=== PATIENT | female | born 1945 | race Caucasian/White ===

== ENCOUNTER 2022-10-31 06:10 | Day surgery (SDC) | payer MEDICARE, BC, SELFPAY ==
--- NOTE | 2022-10-31 06:27 | SUR.PREOP ---
Patient provided home covid negative results to RN.
--- NOTE | 2022-10-31 06:27 | SUR.PREOP ---
The eye drops brought by the patient (Ketorolac and Prednisolone) are examined and I have determined they are labeled by the patient's pharmacy for this patient as prescribed by the surgeon. The bottles are intact, recently obtained and appear to be correct.
[2022-10-31] MEDS: TETRACAINE 0.5% OPHTH 1 DROP EYE-RIGHT ×2 (06:34→06:47)
[2022-10-31 06:36] VITALS: BMI 25.7
[2022-10-31] MEDS: SODIUM CHLORIDE 0.9 % (FLUSH) 10 ML SYRINGE IVF (06:40)
[2022-10-31] MEDS: KETOROLAC OPHTH 0.5% 1 DROP EYE-RIGHT ×3 (06:46→06:57)
[2022-10-31 07:00] VITALS: BP 152/77; PULSE 73; RESP 16; TEMP 36.8; O2SAT 96
[2022-10-31] MEDS: TETRACAINE 0.5% OPHTH 2 DROP EYE-RIGHT (07:17)
[2022-10-31] MEDS: BALANCED SALT IRRIG SOLN 15 ML EYE-RIGHT (07:22)
--- NOTE | 2022-10-31 07:27 | P.ANES_ITS ---
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
[2022-10-31 07:41] VITALS: BP 149/91; PULSE 50; RESP 14; TEMP 36.9; O2SAT 94
[2022-10-31 08:00] VITALS: BP 128/74; PULSE 49; RESP 16; O2SAT 93
--- NOTE | 2022-10-31 08:35 | W.PM.OPTPROC ---
Procedure Note Date of procedure: 10/31/22 Will [facility] bill your pro fee for this procedure?: Yes Procedure Description: SURGEON: Hailee Sharma MD PREOPERATIVE DIAGNOSIS: Nuclear sclerotic cataract, right eye. POSTOPERATIVE DIAGNOSIS: Nuclear sclerotic cataract, right eye. NAME OF OPERATION: Phacoemulsification of cataract with posterior chamber intraocular lens implantation in the right eye. ANESTHESIA: Topical. ESTIMATED BLOOD LOSS: Less than 2 cc. COMPLICATIONS: None. PATHOLOGY SPECIMEN: None. INDICATIONS: See consult note for details. The risks, benefits and alternatives of the procedure were explained to the patient, who elected to proceed and signed informed consent to do so. PROCEDURE: The patient was brought to the pre-holding area where the right eye was identified as the operative eye. I placed my initials above this eye. The patient received eye drops consisting of 0.5% tetracaine, 1% tropicamide, 10% phenylephrine, and 0.5% ketorolac. The patient was then brought to the operating room where the right eye was again identified as the operative eye. The eye was prepped with Betadine and draped in the usual sterile ophthalmic fashion. A #15 super-sharp blade was used to create a paracentesis site. 1% non-preserved intracameral lidocaine was injected into the anterior chamber. Endocoat was injected into the anterior chamber. A 2.4 mm keratome was used to create a three-plane self-sealing incision 1 mm anterior to the temporal limbus. A cystotome was used to create an anterior capsular leaflet. The Utrata forceps were used to extend this to form a continuous curvilinear capsulorrhexis. Hydrodissection was performed. The cataract was removed with phacoemulsification using the [id number] technique. The irrigation and aspiration tip was used to remove the remaining cortex. Healon was injected into the capsular bag. An MAGED ZCB00 intraocular lens of 20.5 diopters was injected into the capsular bag. The irrigation and aspiration tip was used to remove the remaining viscoelastic. Balanced salt solution on a cannula was used to hydrate the wound, and the wound was found to be watertight. The pupil was noted to be round. DISPOSITION: The patient was taken to the recovery room and discharged to home in stable condition. The patient was instructed to call me or go to the emergency department with any sudden change, including dramatic loss of vision, severe pain in the eye or eyebrow region, nausea, or vomiting. The patient will follow up in the clinic tomorrow morning. Surgeon: Hailee Sharma MD
== END 2022-10-31 08:15 | disposition home or self-care (01) ==
PROVIDERS: PCP Family Medicine; Visit Provider Ophthalmology
PROC: (CPT 66984; principal; 2022-10-31 06:15)
DX: H25.11 Age-related nuclear cataract, right eye (principal)
CPT/HCPCS: 66984; 00142; 99100; A9270; J2250; J3010; V2632

== ENCOUNTER 2022-11-14 06:14 | Day surgery (SDC) | payer MEDICARE, BC, SELFPAY ==
[2022-11-14 06:33] VITALS: BMI 25.7
[2022-11-14] MEDS: TETRACAINE 0.5% OPHTH 1 DROP EYE-LEFT ×2 (06:33→06:41)
[2022-11-14 06:37] VITALS: BP 139/90; PULSE 72; RESP 16; TEMP 36.2; O2SAT 94
[2022-11-14] MEDS: KETOROLAC OPHTH 0.5% 1 DROP EYE-LEFT ×3 (06:39→06:55)
[2022-11-14] MEDS: SODIUM CHLORIDE 0.9 % (FLUSH) 10 ML SYRINGE IVF (06:55)
[2022-11-14] MEDS: TETRACAINE 0.5% OPHTH 2 DROP EYE-LEFT (07:21)
[2022-11-14] MEDS: BALANCED SALT IRRIG SOLN 15 ML EYE-LEFT (07:27)
--- NOTE | 2022-11-14 07:35 | SUR.PREOP ---
Patient provided home covid negative results to RN.
[2022-11-14 07:50] VITALS: BP 138/76; PULSE 49; RESP 16; TEMP 36.2; O2SAT 95
--- NOTE | 2022-11-14 07:53 | P.ANES_ITS ---
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
--- NOTE | 2022-11-14 08:02 | W.ANESCHARGE ---
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
--- NOTE | 2022-11-14 08:44 | P.OPTPRC_ITS ---
Procedure Note Date of procedure: 11/14/22 Will [facility] bill your pro fee for this procedure?: Yes Procedure Description: SURGEON: Hailee Sharma MD PREOPERATIVE DIAGNOSIS: Nuclear sclerotic cataract, left eye. POSTOPERATIVE DIAGNOSIS: Nuclear sclerotic cataract, left eye. NAME OF OPERATION: Phacoemulsification of cataract with posterior chamber intraocular lens implantation in the left eye. ANESTHESIA: Topical. ESTIMATED BLOOD LOSS: Less than 2 cc. COMPLICATIONS: None. PATHOLOGY SPECIMEN: None. INDICATIONS: See consult note for details. The risks, benefits and alternatives of the procedure were explained to the patient, who elected to proceed and sign ed informed consent to do so. PROCEDURE: The patient was brought to the pre-holding area where the left eye was identified as the operative eye. I placed my initials above this eye. The patient received eye drops consisting of 0.5% tetracaine, 1% tropicamide, 10% phenylephrine, and 0.5% ketorolac. The patient was then brought to the operating room where the left eye was again identified as the operative eye. The eye was prepped with Betadine and draped in the usual sterile ophthalmic fashion. A #15 super-sharp blade was used to create a paracentesis site. 1% non-preserved intracameral lidocaine was injected into the anterior chamber. Endocoat was injected into the anterior chamber. A 2.4 mm keratome was used to create a three-plane self-sealing incision 1 mm anterior to the temporal limbus. A cystotome was used to create an anterior capsular leaflet. The Utrata forceps were used to extend this to form a continuous curvilinear capsulorrhexis. Hydrodissection was performed. The cataract was removed with phacoemulsification using the [id number] technique. The irrigation and aspiration tip was used to remove the remaining cortex. Healon was injected into the capsular bag. An MAGED ZCB00 intraocular lens of 20.0 diopters was injected into the capsular bag. The irrigation and aspiration tip was used to remove the remaining viscoelastic. Balanced salt solution on a cannula was used to hydrate the wound, and the wound was found to be watertight. The pupil was noted to be round. DISPOSITION: The patient was taken to the recovery room and discharged to home in stable condition. The patient was instructed to call me or go to the emergency department with any sudden change, including dramatic loss of vision, severe pain in the eye or eyebrow region, nausea, or vomiting. The patient will follow up in the clinic tomorrow morning. Surgeon: Hailee Sharma MD
== END 2022-11-14 08:20 | disposition home or self-care (01) ==
PROVIDERS: PCP Family Medicine; Visit Provider Ophthalmology
PROC: (CPT 66984; principal; 2022-11-14 06:15)
DX: H25.12 Age-related nuclear cataract, left eye (principal)
CPT/HCPCS: 66984; 00142; 99100; A9270; J2250; J3010; V2632

== ENCOUNTER 2024-10-31 15:47 | Emergency (ER) | payer MEDICARE, BC, SELFPAY ==
--- OUTSIDE RECORDS SUMMARY | 2024-10-31 15:49 | XMS_ITS | Clinical Summary ---
Author Organization [facility] Address [place], [place] [address] Care Team Providers Care Driveway Attendant Name Role Phone Agapito Stovall MD Unavailable [phone] Gayle Davidson DO Primary Care Provider [phone] Anish Weeks MD Unavailable [phone] Allergies Active Allergy Reactions Criticality Noted Date Comments Meperidine Hypotension,Seizures 02/02/2013 Hydromorphone Hypotension 03/17/2012 Severe hypotensive reaction post op Lactose GI Upset 06/14/2016 Medications ZYRTEC 10 MG TABIndications:A llergic rhinitis, cause unspecified take 1 tablet (10 mg) by oral route once daily 90 3 9 Active NEBULIZERS KITIndications:U nspecified asthma(493.90) use QID as needed 1 0 9 Active zinc 50 mg tablet Take 50 mg by mouth once daily. 3 times weekly 0 2 Active omega-3 fatty acids-vitamin E (FISH OIL) 1,000 mg cap Take 1 capsule by mouth once daily. 0 5 Active aspirin chewable 81 mg chewable tabletIndication s:Coronary artery disease, angina presence unspecified, unspecified vessel or lesion type, unspecified whether [place] or transplanted heart Take 1 tablet by mouth once daily with a meal. 30 tablet 11 6 Active vit C 150mg-vit E 30unit-lutein 3pb-evsrrfdb-ogb ga 3 250mg (OCUVITE ADULT 50 PLUS) Take 1 capsule by mouth once daily. 0 9 Active nitroglycerin (NITROSTAT) 0.4 mg sublingual tabletIndication s:Coronary artery disease, angina presence unspecified, unspecified vessel or lesion type, unspecified whether [place] or transplanted heart Place 1 tablet under the tongue every 5 minutes if needed for Chest Pain (first choice for chest pain). 25 tablet 4 1 Active cholecalciferol (VITAMIN D3) 2,000 unit capsule Take 2,000 units by mouth once daily. 0 1 Active Cranberry 500 mg cap Take 1 Capsule (500 mg) by mouth 2 times daily. 0 1 Active Glucosamine-Sandip d-MSM-Vit C-Mn tablet Take 2 Tablets by mouth once daily. 0 1 Active albuterol (PROVENTIL) 0.083 % neb solutionIndicati ons:Allergic rhinitis, unspecified seasonality, unspecified trigger Inhale 3 mL (2.5 mg) via a nebulizer every 4 hours if needed for Cough 1st choice, Shortness of Breath 1st choice or Wheezing 1st choice. One ampule in nebulizer as needed 25 mL 1 1 Active fluticasone (50 mcg per actuation) nasal solution (FLONASE)Indicat ions:Allergic rhinitis, unspecified seasonality, unspecified trigger Inhale 2 Sprays to both nostrils once daily if needed for Rhinitis. 48 g 3 2 Active albuterol HFA (PRO-AIR; VENTOLIN; PROVENTIL) 90 mcg/actuation inhalerIndicatio ns:Moderate persistent intrinsic asthma without status asthmaticus without complication Inhale 2 Puffs by mouth every 4 hours if needed for Shortness Of Breath. 17 g 2 3 Active benzonatate (TESSALON) 100 mg capsule Take 100 mg by mouth 3 times daily if needed for Cough. asthma Active calcium carbonate-vitami n D3 600 mg-20 mcg (800 unit) tab Take by mouth. Active fluocinonide 0.05% topical (LIDEX) 0.05 % gel Apply topically to affected area(s) one time if needed. 3 Active montelukast (Singulair) 10 mg tabletIndication s:Moderate persistent intrinsic asthma without status asthmaticus without complication Take 1 Tablet (10 mg) by mouth at bedtime. 90 Tablet 3 4 Active fluticasone furoate-vilanter oL (Breo Ellipta) 200-25 mcg/dose inhalation powdererIndicati ons:Moderate persistent intrinsic asthma without status asthmaticus without complication Inhale 1 Puff by mouth once daily. 3 Each 5 Active amLODIPine (NORVASC) 2.5 mg tabletIndication s:HTN (hypertension),U nstable angina (HC) Take 1 Tablet (2.5 mg) by mouth once daily. 90 Tablet 3 5 Active rosuvastatin (CRESTOR) 20 mg tabletIndication s:Coronary artery disease, unspecified vessel or lesion type, unspecified whether angina present, unspecified whether [place] or transplanted heart Take 1 Tablet (20 mg) by mouth at bedtime. 90 Tablet 3 5 Active omeprazole (PRILOSEC) 20 mg Delayed-Release capsuleIndicatio ns:Gastric reflux Take 1 Capsule (20 mg) by mouth once daily before a meal. 90 Capsule 5 Active amLODIPine (NORVASC) 2.5 mg tabletIndication s:HTN (hypertension),U nstable angina (HC) Take 1 Tablet (2.5 mg) by mouth once daily. 90 Tablet 3 4 025 Discontinu ed(Reorder (E-cancel not sent)) rosuvastatin (CRESTOR) 20 mg tabletIndication s:Coronary artery disease, unspecified vessel or lesion type, unspecified whether angina present, unspecified whether [place] or transplanted heart Take 1 Tablet (20 mg) by mouth at bedtime. 90 Tablet 3 4 025 Discontinu ed(Reorder (E-cancel not sent)) omeprazole (PRILOSEC) 20 mg Delayed-Release capsuleIndicatio ns:Gastric reflux TAKE 1 CAPSULE(20 MG) BY MOUTH EVERY DAY BEFORE A MEAL 90 Capsule 4 025 Discontinu ed(Reorder (E-cancel not sent)) montelukast (SINGULAIR) 10 mg tabletIndication s:Moderate persistent intrinsic asthma without status asthmaticus without complication Take 1 Tablet (10 mg) by mouth at bedtime. 90 Tablet 4 025 Discontinu ed(Duplica te therapy (E-cancel not sent)) Active Problems Problem Noted Date Diagnosed Date History of CAD (coronary artery disease) 024 Atypical chest pain 12/31/2023 Primary hypertension 12/31/2023 Mixed hyperlipidemia 12/31/2023 Colon polyp 07/05/2023 Overview (07/05/2023): Colonoscopy 06/2023 2-TA, repeat in 7 years Endometrial carcinoma 09/04/2017 Overview (09/04/2017): [place] 2017: hysterectomy due to. Final pathology endometrial carcinoma, endometrioid type, FIGO grade 1. See pathology report. Bilateral asymmetric sensorineural hearing loss 10/16/2016 Vertigo 06/13/2016 ECG abnormality 06/13/2016 Diaphoresis 06/13/2016 Tinnitus 06/13/2016 GERD (gastroesophageal reflux disease) 6 CAD (coronary artery disease) 06/13/2016 Overview (06/13/2016): - 06/13/16 Angio: s/p SAI to mid LAD and PTCA to diagonal Allergic cough 01/20/2014 Adenomatous colon polyp 02/18/2013 Overview (04/11/2018): Colonoscopy 01/2013 polyp repeat in 5 years Colonoscopy 03/2018 polyp, repeat in 5 years Routine general medical exam ination at a health care facility 03/17/2012 Overview (03/17/2012): dexa normal 2008. Repeat in 5 years or so. Fe Moreira M.D. 03/17/2012 3:39 PM ACP (advance care planning) 01/03/2012 Overview (04/19/2016): Updated HCD, see HCD from 02/2016 STACY Waterman Advance Care Planning Educator [phone] Hip osteoarthritis 05/09/2011 Postmenopausal atrophic vaginitis 11/08/2009 Allergic rhinitis, cause unspecified Unspecified asthma(493.90) Resolved Problems Problem Noted Date Diagnosed Date Resolved Date Hip pain 11/08/2009 02/11/2012 Encounters Date Type Department Care Team Description 10/15/2024 8:20 AM STEEL POURER HELPER Office Visit [facility] [address] [place] [facility] [place] [address] Gayle Davidson DO Medicare ANNUAL (subsequent) Visit (79 year old ) 10/15/2024 Travel 10/13/2024 Travel 09/30/2024 1:40 PM STEEL POURER HELPER Ancillary Procedure [facility] [address] [place] [address] 09/30/2024 Refill [facility] [place] [address] Agapito Stovall MD Refill Request (FLUTIC/VILAN) 09/29/2024 Travel 08/27/2024 7:55 AM STEEL POURER HELPER Office [facility] [place] [address] Gayle Davidson DO Breast Problem (left sided on and off for 11 months. more consistent lately) 08/27/2024 Orders Only [facility] [place] [address] Gayle Davidson DO 1 scan: (1-Ord) NFLD-EKG-08/27/24 08/26/2024 Travel 08/26/2024 Nurse Triage [facility] [address] [place] [address] Lashawn Macias, RAYNA Pain In Breast; Chest Pain/problem 08/17/2024 10:40 AM STEEL POURER HELPER Office Visit [facility] [place] [address] Agapito Stovall MD Allergies (ANNUAL ASTHMA FOLLOW UP-MED CHECK) 08/17/2024 Orders Only [facility] Scanner 1 scan: (1-Ord) UNKNOWN FACILITY, [facility], 08/17/2024 08/17/2024 Travel 08/12/2024 Travel 08/06/2024 Refill [facility] [address] [place] [address] Gayle Davidson DO Refill Request (Omeprazole/Montelu kast ) from Last 3 Months Immunizations Name Administration Dates Next Due AMB INFLUENZA IIV3 (AGE 65+ YRS) PF (Flu Clinic Only) 07/11/2019,07/02/2017 Amb Influenza, Inact (High-d ose) (Flu Clinic Only) 08/12/2015,07/07/2014 COVID-19 VACCINE SPIKEVAX (M ODERNA 50MCG/0.5ML) 12YO+ PFS 12/26/2023 COVID-19 vaccine (Moderna 50 mcg/0.5mL) 12YO+ BIVALENT PF, MDV 01/15/2023 COVID-19 vaccine (for[MD]-Bio NTech 30mcg/0.3mL) 12YO+ BIVALENT PF, MDV 06/09/2022 COVID-19 vaccine (Pfizer-Bio NTech 30mcg/0.3mL) PF, MDV 11/26/2020,11/05/2020 Influenza A (H1N1), Inactivated 08/04/2009 Influenza Virus, Unspecified 07/05/2017 Influenza, High-dose Inactivated 024,06/07/2020,07/11/2016,08/12,07/07/2014 Influenza, High-dose Quadriv alent Inactivated 06/29/2021,05/06/2020 Influenza, IIV3 (Age 6-35 mos) 05/31/2011 Influenza, IIV3 (Age >=3 years) 07/29/20 13,06/26/2012,05/31/2011,06/26,07/05/2004 Influenza, Inactivated AIIV4 (Age 65+ Years) Preserv Free 08/04/2023,07/16/2022 Influenza, Inactivated IIV3 (Age 65+ Years) Preserv Free 06/26/2018 Pneumococcal Conj 20-valent (Prevnar 20) 06/24/2024 Pneumococcal Poly,23-Valent (Pneumovax) 01/06/2014 Pneumococcal conj 13-Valent (Prevnar 13) 10/13/2015 RSV, Bivalent Vaccine Recons tituted (Abrysvo 120MCG/0.5mL) 08/04/2023 Td (Age >=7 Years) 01/18/2003 Tdap 09/12/2021,02/05/2011 Zoster (Shingrix-RZV, recombinant) 01/15/2019, Zoster (Zostavax-ZVL, live) 02/05/2011 Family History Medical History Relation Name Comments Heart Disease Father decreased at 7 8 from a heart attack Cancer-breast Mother 80's Other Mother macular degener ation Cancer-breast Other x4 cousins Cancer-breast Paternal Grandmother Cancer-colon No Family History Cancer-ovarian No Family History Relation Name Status Comments Father (Age 78) heart winnie ck Mother Alive Other Paternal Grandmother Social History Tobacco Use Types Packs/Day Years Used Date Smoking Tobacco: Never Smokeless Tobacco: Never Tobacco Cessation:Counseling Given: Yes Alcohol Use Standard Drinks/Week Comments Not Currently 0 (1 standard drink = 0.6 oz pur e alcohol) PHQ-2 Answer Date Recorded PHQ-2 TOTAL SCORE 2 10/15/2024 Social Connections Answer Date Recorded Do you often feel lonely or isolated from those around you? 0 10/15/2024 Alcohol Use Answer Date Recorded How often do you have a drink containing alcohol ? 1 09/11/2021 How many drinks containing a lcohol do you have on a typical day when you are drinking? 0 09/11/2021 How often do you have five or more drinks on one occasion? 0 09/11/2021 Financial Resource Strain Answer Date R ecorded Difficulty of Paying Living Expenses 3 10/15/2024 Difficulty of Paying Living Expenses Not on file 10/15/2024 Food Insecurity Answer Date Recorded Do you worry your food will run out before you are able to buy more? 1 10/15/2024 Transportation Needs Answer Date Record ed Does lack of transportation keep you from medica l appointments? 1 10/15/2024 Does lack of transportation keep you from work, meetings or getting things that you need? 1 10/15/2024 Housing Stability Answer Date Recorded What is your housing situation today? 1 10/15/2024 Utilities Answer Date Recorded Do you have trouble paying f or utilities (for example, heat, electricity, water, phone)? 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 on file Not on file Not on file Obstetrics History Para Term AB IAB SAB Ectopic Multiple Livin g Live Births 4 2 0 0 2 0 2 0 0 2 2 Date Outcome GA Total Labor Labor/2nd/3rd Weight Sex Type Anes PTL Christa A1 A5 Name Clin Para Vag Living Para Vag Living SAB SAB Last Filed Vital Signs Vital Sign Reading Time Taken Comments Blood Pressure 118/74 10/15/2024 8:39 AM STEEL POURER HELPER Pulse 75 10/15/2024 8:25 AM STEEL POURER HELPER Temperature 36.4 C (97.6 F) 08/17/2024 10:50 AM STEEL POURER HELPER Respiratory Rate 16 07/03/2023 11:12 AM CDT Oxygen Saturation 98% 10/15/2024 8:25 AM STEEL POURER HELPER Inhaled Oxygen Concentration - - Weight 67.7 kg (149 lb 3.2 oz) 10/15/2024 8:25 A M STEEL POURER HELPER Height 163.5 cm (5' 4.37) 10/15/2024 8:25 AM CS T Body Mass Index 25.32 10/15/2024 8:25 AM STEEL POURER HELPER Plan of Treatment Upcoming Encounters Date Type Department Care Team (Late st Contact Info) Description 12/25/2024 1:00 PM CDT Ancillary Procedure [facility] [address] [place] [address] Health Maintenance Due Date Last Done Comments BMI (ht and wt on same day) for age 18+ 10/15/2025 10/15/2024, 08/17/2024, 10/10/2023, Additional history exists Depression screening for age 12+ 10/15/2025 10/15/2024, 10/10/2023, 09/12/2022, Additional history exists Medicare Wellness for age 65+ 10/16/2025, 10/10/2023, 09/12/2022, Additional history exists Tetanus booster 09/12/2031 09/12/2021, 01/21, 01/18/2003 Zoster (shingles) series for age 50+ Completed 01/15/2019, 11/14/2018, 02/05/2011 Hepatitis C screening for ag e 18-79 Completed 09/02/2019 DEXA/DXA scan for age 65+ Completed 2020, 10/14/2015, 10/21/2008 Tdap Completed 09/12/2021, 02/05/2011 RSV vaccine for adults or Completed 08/04/2023 COVID-19 vaccine series Completed 06/24/20, 12/26/2023, 06/26/2023, Additional history exists Influenza for age 65+ Completed 06/24/2024 , 08/04/2023, 07/16/2022, Additional history exists Pneumococcal series for age 50+ Completed 06/24/2024, 10/13/2015, 01/06/2014 Procedures Procedure Name Priority Date/Time Associated Diagnosis Comments LDL CHOLESTEROL,DIRECT Routine 10/15/2024 9:27 AM STEEL POURER HELPER History of CAD (coronary artery disease) Mixed hyperlipidemia BASIC METABOLIC PANEL Routine 10/15/2024 9:27 AM STEEL POURER HELPER History of CAD (coronary artery disease) Mixed hyperlipidemia XR MAMMO KIRSTEN BILAT SCREEN Routine 09/30/2024 1:46 PM STEEL POURER HELPER Encounter for screening mammogram for malignant neoplasm of breast NV READING EKG - NO CHARGE, COMP ONLY Routine 08/27/2024 3:36 PM STEEL POURER HELPER Atypical chest pain EKG 12 LEAD Routine 08/27/2024 3:36 PM STEEL POURER HELPER Atypical chest pain NV SPMTRY W/VC EXPIRATORY NANNETTE W/WO MXML VOL VNTJ Routine 08/17/2024 12:00 AM STEEL POURER HELPER Moderate persistent intrinsic asthma without status asthmaticus without complication SCAN-EVENT MONITOR 08/17/2024 12 :00 AM STEEL POURER HELPER XR DXA BONE DENSITY 1 SITE AXIAL AND 1 SITE PERIPHERAL Routine 09/11/2021 9:36 AM STEEL POURER HELPER Osteopenia, unspecified location Other specified disorders of bone density and structure, multiple sites ANTI HCV Routine 09/02/2019 11:36 AM STEEL POURER HELPER Need for hepatitis C screening test from Last 3 Months or Most Recently Relevant to Health Maintenance Results * LDL CHOLESTEROL,DIRECT (10/15/2024 9:27 AM STEEL POURER HELPER) DIRECT LDL 50 <100 mg/dL [facility] Comment: Desirable range <100 mg/dL for primary prevention; <70 mg/dL for patients with CHD or diabetic patients with > or = 2 CHD risk factors. Blood BLOOD SPECIMEN / Unknown 10/15/2024 9:27 AM STEEL POURER HELPER 10/15/2024 9:28 AM STEEL POURER HELPER Gayle Davidson DO CHEMISTRY Final Resu lt [facility] [address] [place] [address], [facility] [address] [place] [address] * BASIC METABOLIC PANEL (10/15/2024 9:27 AM STEEL POURER HELPER) Pathologist [facility] GLUCOSE 78 65 - 99 mg/dL [facility] Comment: Fasting reference interval UREA NITROGEN (BUN) 18 7 - 25 mg/dL [facility] CREATININE 0.79 0.60 - 1.00 mg/dL [facility] EGFR 77 > OR = 60 mL/min/1. 73m2 [facility] BUN/CREATININE RATIO SEE NOTE: 6 - 22 (calc) [facility] Comment: Not Reported: BUN and Creatinine are within reference range. SODIUM 141 135 - 146 mmol/L [facility] POTASSIUM 5.2 3.5 - 5.3 mmol/L [facility] CHLORIDE 103 98 - 110 mmol/L [facility] CARBON DIOXIDE 31 20 - 32 mmol/L [facility] ELECTROLYTE BALANCE 7 7 - 17 mmol/L (calc) [facility] CALCIUM 9.9 8.6 - 10.4 mg/dL [facility] Blood BLOOD SPECIMEN / Unknown 10/15/2024 9:27 AM STEEL POURER HELPER 10/15/2024 9:28 AM STEEL POURER HELPER Gayle Davidson DO CHEMISTRY Final Resu lt [facility] [address] [place] [address], [facility] [address] [place] [address] * XR MAMMO KIRSTEN BILAT SCREEN (09/30/2024 1:46 PM STEEL POURER HELPER) Anatomical Region Laterality Modality BREASTS, Breast Left, Breast Right Bilateral Mammography Impressions 09/30/2024 3:16 PM STEEL POURER HELPER There is no radiographic evidence for malignancy. Recommend annual mammograms. MAMMOGRAM ASSESSMENT: ACR 1 Negative PATIENTS: You will also receive a letter with your examination results in an easy to read format. If you have questions about your results, please contact your referring provider. Narrative 09/30/2024 3:16 PM STEEL POURER HELPER For Patients: As a result of the Cures Act, medical imaging exams and procedure reports are released immediately into your electronic medical record. You may view this report before your referring provider. If you have questions, please contact your health care provider. XR MAMMO KIRSTEN BILAT SCREEN [[id number]] CLINICAL HISTORY: This is an asymptomatic 79 y.o. patient. INDICATION FOR EXAM: Mammogram Screening. TECHNIQUE: CC & MLO views were obtained. This study was evaluated with the assistance of Computer-Aided Detection. Breast Tomosynthesis was used in interpretation. COMPARISON FILM: Yes 08/28/23 [facility] 08/22/22 [facility] FINDINGS: The breasts are almost entirely fatty. There are no dominant masses, suspicious micro calcifications or areas of architectural distortion. us Gayle Davidson DO MAMMO Final Resu lt * EKG 12 LEAD (08/27/2024 3:36 PM STEEL POURER HELPER) us Gayle Davidson DO EKG ORD Final Resu lt * NV READING EKG - NO CHARGE, COMP ONLY (08/27/2024 3:36 PM STEEL POURER HELPER) us Gayle Davidson DO PB - PROVIDER READINGS Fin al Result * NV SPIROMETRY W VITAL CAPACITY (08/17/2024 12:00 AM STEEL POURER HELPER) Agapito Stovall MD PB - RESPIRATORY SYSTEM SE RVICES Final Result * SCAN-EVENT MONITOR (08/17/2024 12:00 AM STEEL POURER HELPER) Scanner OTHER Final Result * (ABNORMAL) XR DXA BONE DENSITY 1 SITE AXIAL AND 1 SITE PERIPHERAL (09/11/2021 9:36 AM STEEL POURER HELPER) Anatomical Region Laterality Modality LUMBAR SPINE Other Impressions 09/22/2021 8:13 AM STEEL POURER HELPER Osteopenia. RECOMMENDATIONS: The National Osteoporosis Foundation recommends pharmacologic treatment for patients with T-scores of -2.5 or less, patients with prior history of fragility fractures, or patients with 10-year probability of greater than 3% at hips or greater than 20% of suffering major osteoporotic fractures. Recommend continued optimization of calcium and vitamin D intake through dietary means and/or supplementation and regular exercise. Repeat scan recommended in 3-5 years. Greer Victor PA-C [facility] 09/22/2021 Narrative 09/22/2021 8:13 AM STEEL POURER HELPER For Patients: Results are automatically released to your [employer] account once available, in compliance with federal regulations. This means that you may see your results before your provider has had a chance to review them. Please allow 2-3 business days for your provider to comment on the results. XR DXA Bone Mineral Density (BMD) EXAM LOCATION: [address] [address] PATIENT NAME: Tu Forde DATE OF : 1945 EXAM DATE: 09/11/2021 REQUESTING PROVIDER: Gayle Davidson DO GENDER AT : female HEIGHT: 5' 4.5 (09/11/2021) WEIGHT: 147 lb (09/11/2021) MENOPAUSAL STATUS: Postmenopausal RACE/ETHNICITY: White RISK FACTORS: White Race CURRENT MEDICATION FOR BONE LOSS: NONE INDICATION: Follow-up of existing osteopenia COMPARISON DATE(S): 2015 DXA scans are compared to prior studies for a patient only when the two (or more) studies were performed on the same scanner. It is not possible to compare data generated on one scanner to data from another because there are not standards in DXA equipment. This applies even if the two scanners are made by the same reeling machine operator. PROCEDURE: Dual-energy x-ray absorptiometry performed with routine technique. Reporting is completed in the form of a T-score. The T-score represents the standard deviation from peak bone mass based on young healthy adult. A Z-score is used for diagnosis in premenopausal women, and for men under the age of 50. FINDINGS: RESULT LUMBAR SPINE L1 - L4 (L3) BMD: 1.138 g/cm2 T-Score: - 0.4 Z-Score: + 1.3 Change from prior in 2016: Decrease 2.2%. RESULT FOREARM Left Forearm distal radius BMD: 0.704 g/cm2 T-Score: - 2.0 Z-Score: + 0.2 Change from prior in 2016: Decrease 1.5%. WHO criteria: Normal: T-score at or above -1 SD Osteopenia: T-score between -1.1 and -2.4 SD Osteoporosis: T-score at or below -2.5 SD Gayle Davidson DO DEXA Final Resu lt * ANTI HCV (09/02/2019 11:36 AM STEEL POURER HELPER) HEPATITIS C ANTIBODY Non-React long Non-React long 09/03/2019 6:28 AM STEEL POURER HELPER [facility] Comment:Antibodies to HCV no t detected; does not exclude the possibility of exposure to HCV. Blood BLOOD SPECIMEN / Unknown Venipuncture / Unknown 09/02/2019 11:36 AM STEEL POURER HELPER 09/02/2019 11:41 AM STEEL POURER HELPER Gayle Davidson DO SEND OUTS Final Resu lt [facility] 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, 03/07/2016 * Full Code (Latest Code Status on File) Date Activated Date Inactivated Comments 10/11/2020 11:39 AM 10/11/2020 7:08 PM Question Answer Comments Code Status Discussion: Discussed * Full Code Date Activated Date Inactivated Comments 06/13/2016 11:28 AM 06/14/2016 4:48 PM * Full Code Date Activated Date Inactivated Comments 06/13/2016 3:46 AM 06/13/2016 11:28 AM Care Teams Driveway Attendant Relationship Specialty Start Date End Date Gayle Davidson DO [address] [place] [address] PCP - General Family Practice 10/10/15 Agapito Stovall MD Allergy and Immunology 01/06/14 Anish Weeks MD [address] [facility] [address] [place] [address] Radiology - Diagnostic 10/13/15
[2024-10-31 15:54] VITALS: BP 133/60; PULSE 67; RESP 18; TEMP 37; O2SAT 93; BMI 24.9
--- NOTE | 2024-10-31 16:09 | CRLHL7_ITS ---
For Patients: As a result of the Century Cures Act, medical imaging exams and procedure reports are released immediately into your electronic medical record. You may view this report before your referring provider. If you have questions, please contact your health care provider. INDICATION: Injury. TECHNIQUE: Three views of the left wrist. FINDINGS: Acute non distracted dorsally angulated impaction type fracture of the distal left radius with subtle comminution and obvious soft tissue swelling. There is also fracture of the distal ulna also likely of the impaction type without significant angulation or distraction. Degenerative change of the wrist particularly the 1st CMC joint which is markedly narrowed with sclerosis and spurring. Skeletal demineralization. IMPRESSION: Non distracted dorsally angulated impaction type fracture of distal left radius. Impaction type fracture of the distal ulna without significant malalignment. Skeletal demineralization and degenerative arthritis. Dictated by Kevin Aly MD @ 10/31/2024 4:56:41 PM (Electronically Signed)
--- NOTE | 2024-10-31 16:10 | ED_ITS ---
HPI - Trauma General Chief Complaint: Extremity Pain/Injury, Upper Stated Complaint: broken left arm Time Seen by Provider: 10/31/24 15:48 History of Present Illness HPI narrative: Patient is a 79-year-old woman who was hiking today and came across a slippery spot. She fell injuring her left wrist. He has pain over the distal radius. She has normal sensation and movement in her hand. She has not found any discomfort in her left elbow or left shoulder. She has no skin breakdown. She did not hit her head and was assisted from her hiking to the emergency room by her friends. Related Data Home Medications ?Medication ?Instructions ?Recorded ?Confirmed albuterol sulfate 90 mcg/actuation 2 puff inhalation Q4H PRN 10/29/22 11/14/22 aerosol inhaler amlodipine 2.5 mg tablet 2.5 mg PO DAILY 10/29/22 11/14/22 aspirin 81 mg chewable tablet 81 mg PO DAILY 10/29/22 11/14/22 calcium carbonate-vitamin 1 tab PO DAILY 10/29/22 11/14/22 D2-minerals tablet cetirizine 10 mg tablet (24Hour 10 mg PO DAILY PRN 10/29/22 11/14/22 Allergy) cholecalciferol (vitamin D3) 50 4,000 unit PO DAILY 10/29/22 11/14/22 mcg (2,000 unit) capsule cranberry 500 mg capsule 500 mg PO BID 10/29/22 11/14/22 docosahexaenoic xiik-pen-lmu E 1 cap PO DAILY 10/29/22 11/14/22 capsule fluticasone furoate 200 1 inh inhalation Q24H 10/29/22 11/14/22 mcg-vilanterol 25 mcg/dose inhalation powder (Breo Ellipta) fluticasone propionate 50 2 spray intranasal DAILY PRN 10/29/22 10/29/22 mcg/actuation nasal spray,suspension glucosamine 375 sb-izcdbdpaw-cnt 2 tab PO DAILY 10/29/22 11/14/22 no1 500 mg-C 15 mg-isaiah 0.5 mg tablet (Eixpahowqnq-Wmgpxsixkma-JSY Complex) loratadine 10 mg tablet (Allergy 10 mg PO DAILY 10/29/22 11/14/22 Relief (loratadine)) mometasone 50 mcg/actuation HFA 2 inh inhalation DAILY PRN 10/29/22 11/14/22 aerosol inhaler montelukast 10 mg tablet 10 mg PO QAM 10/29/22 11/14/22 nitroglycerin 0.4 mg sublingual 0.4 mg sublingual Q5M PRN chest 10/29/22 11/14/22 tablet pain omeprazole 20 mg capsule,delayed 20 mg PO DAILY 10/29/22 11/14/22 release rosuvastatin 20 mg tablet 20 mg PO HS 10/29/22 11/14/22 vit 1 cap PO DAILY 10/29/22 11/14/22 C,E,zinc,Wa-dhopu-6-lutein-zeaxanthin 250 mg-2.5 mg-0.5 mg capsule zinc 50 mg tablet 50 mg PO DAILY 10/29/22 11/14/22 Allergies Allergy/AdvReac Type Severity Reaction Status Date / Time hydromorphone (From Dilaudid) Allergy Unknown Verified 10/31/24 15:54 meperidine (From Demerol) Allergy Unknown Verified 10/31/24 15:54 Review of Systems Status of ROS: Reports: 10 or more systems reviewed and unremarkable except as noted in History and below [facility] Medical History Osteoarthritis of hip, unspecified ?M16.9 - Osteoarthritis of hip, unspecified (ICD-10) Postmenopausal atrophic vaginitis ?N95.2 - Postmenopausal atrophic vaginitis (ICD-10) Allergic rhinitis, unspecified ?J30.9 - Allergic rhinitis, unspecified (ICD-10) Chronic GERD ?K21.9 - Gastro-esophageal reflux disease without esophagitis (ICD-10) Asthma ?J45.909 - Unspecified asthma, uncomplicated (ICD-10) Social History Smoking Status: Never smoker Do you use any of these nicotine containing products: None Second hand tobacco smoke exposure: No How often do you have a drink containing alcohol: monthly or less How many standard drinks containing alcohol do you have on a typical day: 1 or 2 How often do you have six or more drinks on one occasion: Never AUDIT-C Alcohol total score: 1 Non-prescribed substance use: denies use Caffeine: No service: No Exam Narrative: Exam Narrative: EXAM GENERAL: Patient appears comfortable and well. EYES: No scleral icterus. LYMPH: No supraclavicular or cervical lymphadenopathy. SKIN: Visible skin seen during exam normal or with benign process only. EXT: Obvious malalignment of the left wrist. Minimal bruising. Mild swelling. HEART: Regular rate and rhythm with no murmurs, rubs, or gallops. LUNGS: Clear to auscultation bilaterally with no crackles or wheezes. ABD: Soft, non tender, non distended. PSYCH: Good eye contact, speech is not pressured. Const: Vital Signs, click to edit/add: Vital Signs - 24 hr 10/31/24 15:54 Temperature 98.6 F Pulse Rate [Pulse Oximeter] 67 Respiratory Rate 18 Blood Pressure [Ri ght Forearm] 133/60 Pulse Oximetry 93 Oxygen Delivery Me thod Room Air Course Course ED Course: Patient seen and examined. X-ray pending. Vital Signs Vital signs: Initial Vital Signs Temperature 98.6 F 10/31/24 15:54 Temperature Source Temporal Artery Scan 10/31/24 15:54 Pulse Rate 67 10/31/24 15:54 Pulse Rhythm Regular 10/31/24 15:54 Respiratory Rate 18 10/31/24 15:54 Blood Pressure 133/60 10/31/24 15:54 Blood Pressure Mean 84 10/31/24 15:54 Blood Pressure Position Semi-Fowlers 10/31/24 15:54 Pulse Oximetry 93 10/31/24 15:54 Oxygen Delivery Method Room Air 10/31/24 15:54 Vital Signs Temperature 98.6 F 10/31/24 15:54 Pulse Rate 67 10/31/24 15:54 Respiratory Rate 18 10/31/24 15:54 Blood Pressure 133/60 10/31/24 15:54 Pulse Oximetry 93 10/31/24 15:54 Oxygen Delivery Method Room Air 10/31/24 15:54 Temperature 98.6 F 10/31/24 15:54 Pulse Rate 67 10/31/24 15:54 Respiratory Rate 18 10/31/24 15:54 Blood Pressure 133/60 10/31/24 15:54 Pulse Oximetry 93 10/31/24 15:54 Oxygen Delivery Method Room Air 10/31/24 15:54 Medications Administered Medications: Generic Name Dose Route Start Last Admin Trade Name Freq PRN Reason Stop Dose Admin Acetaminophen 1,000 mg 10/31/24 17:00 10/31/24 17:05 Acetaminophen 500 Mg Tablet PO 10/31/24 17:01 1,000 mg ONCE ONE Administration MDM - Trauma MDM Narrative Medical decision making narrative: Patient is a 79-year-old woman who fell landing on her left wrist. She has a distal radius and ulnar fracture that was able to successfully partially reduce before splinting. We did place her in a short-arm splint and instructed her on care including Tylenol Motrin ice follow-up with orthopedics in 4 or 5 days. Discharge Plan Discharge Clinical Impression: Fracture of wrist Patient Disposition: Home, Self-Care Condition: Stable Instructions: Wrist Fracture in Adults (ED) Additional Instructions: Tylenol Motrin Ice Wear splint Follow-up with orthopedics in 4-5 days. Activity Level: No Restrictions Discharge Diet: Regular Prescriptions: No Action albuterol sulfate 90 mcg/actuation HFA aerosol inhaler 2 puff INHALATION Q4H PRN Patient Comments: INHALE 2 PUFFS BY MOUTH EVERY 4 HOURS NEEDED FOR SHORTNESS OF BREATH OR W HEEZING amlodipine 2.5 mg tablet 2.5 mg PO DAILY omeprazole 20 mg capsule,delayed release(DR/EC) 20 mg PO DAILY montelukast 10 mg tablet 10 mg PO QAM fluticasone propionate 50 mcg/actuation spray,suspension 2 spray INTRANASAL DAILY PRN Patient Comments: SHAKE LIQUID AND USE 2 SPRAYS IN EACH NOSTRIL EVERY DAY NEEDED FOR RHINITIS rosuvastatin 20 mg tablet 20 mg PO HS fluticasone furoate-vilanterol [Breo Ellipta] 200-25 mcg/dose blister with device 1 inh INHALATION Q24H Patient Comments: INHALE 1 PUFF BY MOUTH EVERY DAY aspirin 81 mg tablet,chewable 81 mg PO DAILY calcium carb-vit D2-minerals Tablet 1 tab PO DAILY cholecalciferol (vitamin D3) 50 mcg (2,000 unit) capsule 4,000 unit PO DAILY Jswkhhlmtqv-Goyrl-OGW Complex 046-524-66-0.5 mg tablet 2 tab PO DAILY loratadine [Allergy Relief (loratadine)] 10 mg tablet 10 mg PO DAILY mometasone 50 mcg/actuation HFA aerosol inhaler 2 inh inhalation DAILY PRN nitroglycerin 0.4 mg tablet, sublingual 0.4 mg sublingual Q5M PRN (Reason: chest pain) Rx Instructions: do not exceed 3 doses per episode docosahexaenoic mqzf-vvy-fxf E Capsule 1 cap PO DAILY cranberry 500 mg capsule 500 mg PO BID Rx Instructions: administer with a meal vit C,E,Zn,Mh--bii-zeax 250-2.5-0.5 mg capsule 1 cap PO DAILY zinc 50 mg tablet 50 mg PO DAILY cetirizine [24Hour Allergy] 10 mg tablet 10 mg PO DAILY PRN Follow Up/Referrals: Gayle Davidson DO [Primary Care Provider] - Stand Alone Forms: [employer] Info Instructions
--- OUTSIDE RECORDS SUMMARY | 2024-10-31 16:18 | XMS_ITS | Clinical Summary ---
Author Organization [employer] [facility] Address [place], [place] [address] Care Team Providers Care Consumer Education Specialist Name Role Phone Agapito Stovall MD Unavailable [phone] Gayle Davidson DO Primary Care Provider [phone] Anish Weeks MD Unavailable [phone] Allergies Active Allergy Reactions Criticality Noted Date [...] unspecified vessel or lesion type, unspecified whether [place] or transplanted heart Take 1 tablet by mouth once daily with a meal. 30 tablet 11 6 Active vit C 150mg-vit E 30unit-lutein 0dl-sltdenmb-ewl ga 3 250mg (OCUVITE ADULT 50 PLUS) Take 1 capsule by mouth once daily. 0 9 Active nitroglycerin (NITROSTAT) 0.4 mg sublingual tabletIndication s:Coronary artery disease, angina presence unspecified, unspecified vessel or lesion type, unspecified whether [place] or transplanted heart Place 1 tablet under [...] type, unspecified whether angina present, unspecified whether [place] or transplanted heart Take 1 Tablet (20 [...] type, unspecified whether angina present, unspecified whether [place] or transplanted heart Take 1 Tablet (20 [...] 7 years Endometrial carcinoma 09/04/2017 Overview (09/04/2017): [place] 2017: hysterectomy due to. Final pathology endometrial [...] 02/2016 STACY Waterman Advance Care Planning Educator [phone] Hip osteoarthritis 05/09/2011 Postmenopausal atrophic vaginitis 11/08/2009 Allergic rhinitis, cause unspecified Unspecified asthma(493.90) Resolved Problems Problem Noted Date Diagnosed Date Resolved Date Hip pain 11/08/2009 02/11/2012 Encounters Date Type Department Care Team Description 10/15/2024 8:20 AM FLOWER STRIPPER Office Visit [facility] [address] [place] [address] Gayle Davidson DO Medicare ANNUAL (subsequent) Visit (79 year old ) 10/15/2024 Travel 10/13/2024 Travel 09/30/2024 1:40 PM FLOWER STRIPPER Ancillary Procedure [facility] [address] [place] [address] 09/30/2024 Refill [facility] [place] [address] Agapito Stovall MD Refill Request (FLUTIC/VILAN) 09/29/2024 Travel 08/27/2024 7:55 AM FLOWER STRIPPER Office [facility] [place] [address] Gayle Davidson DO Breast Problem (left sided on and off for 11 months. more consistent lately) 08/27/2024 Orders Only [facility] [place] [address] Gayle Davidson DO 1 scan: (1-Ord) NFLD-EKG-08/27/24 08/26/2024 Travel 08/26/2024 Nurse Triage [facility] [address] [place] [address] Lashawn Macias, RAYNA Pain In Breast; Chest Pain/problem 08/17/2024 10:40 AM FLOWER STRIPPER Office Visit [facility] [place] [address] Agapito Stovall MD Allergies (ANNUAL ASTHMA FOLLOW UP-MED CHECK) 08/17/2024 Orders Only [facility] Scanner 1 scan: (1-Ord) UNKNOWN FACILITY, [facility], 08/17/2024 08/17/2024 Travel 08/12/2024 Travel 08/06/2024 Refill [facility] [address] [place] [address] Gayle Davidson DO Refill Request (Omeprazole/Montelu kast ) from Last 3 Months Immunizations Name Administration Dates Next Due AMB INFLUENZA IIV3 (AGE 65+ YRS) PF (Flu Clinic Only) 07/11/2019,07/02/2017 Amb Influenza, Inact (High-d ose) (Flu Clinic Only) 08/12/2015,07/07/2014 COVID-19 VACCINE SPIKEVAX (M ODERNA 50MCG/0.5ML) 12YO+ PFS 12/26/2023 COVID-19 vaccine (Moderna 50 mcg/0.5mL) 12YO+ BIVALENT PF, MDV 01/15/2023 COVID-19 vaccine (DearJane-Bio NTech 30mcg/0.3mL) 12YO+ BIVALENT PF, MDV 06/09/2022 [...] on file Legal Sex Female 5:24 AM FLOWER STRIPPER Gender Identity Not on file Sexual Orientation [...] Comments Blood Pressure 118/74 10/15/2024 8:39 AM FLOWER STRIPPER Pulse 75 10/15/2024 8:25 AM FLOWER STRIPPER Temperature 36.4 C (97.6 F) 08/17/2024 10:50 AM FLOWER STRIPPER Respiratory Rate 16 07/03/2023 11:12 AM CDT Oxygen Saturation 98% 10/15/2024 8:25 AM FLOWER STRIPPER Inhaled Oxygen Concentration - - Weight 67.7 kg (149 lb 3.2 oz) 10/15/2024 8:25 A M FLOWER STRIPPER Height 163.5 cm (5' 4.37) 10/15/2024 8:25 AM CS T Body Mass Index 25.32 10/15/2024 8:25 AM FLOWER STRIPPER Plan of Treatment Upcoming Encounters Date Type Department Care Team (Late st Contact Info) Description 12/25/2024 1:00 PM CDT Ancillary Procedure [facility] [address] [place] [address] Health Maintenance Due Date Last [...] Comments LDL CHOLESTEROL,DIRECT Routine 10/15/2024 9:27 AM FLOWER STRIPPER History of CAD (coronary artery disease) Mixed hyperlipidemia BASIC METABOLIC PANEL Routine 10/15/2024 9:27 AM FLOWER STRIPPER History of CAD (coronary artery disease) Mixed hyperlipidemia XR MAMMO KIRSTEN BILAT SCREEN Routine 09/30/2024 1:46 PM FLOWER STRIPPER Encounter for screening mammogram for malignant neoplasm of breast TN READING EKG - NO CHARGE, COMP ONLY Routine 08/27/2024 3:36 PM FLOWER STRIPPER Atypical chest pain EKG 12 LEAD Routine 08/27/2024 3:36 PM FLOWER STRIPPER Atypical chest pain TN SPMTRY W/VC EXPIRATORY NANNETTE W/WO MXML VOL VNTJ Routine 08/17/2024 12:00 AM FLOWER STRIPPER Moderate persistent intrinsic asthma without status asthmaticus without complication SCAN-EVENT MONITOR 08/17/2024 12 :00 AM FLOWER STRIPPER XR DXA BONE DENSITY 1 SITE AXIAL AND 1 SITE PERIPHERAL Routine 09/11/2021 9:36 AM FLOWER STRIPPER Osteopenia, unspecified location Other specified disorders of bone density and structure, multiple sites ANTI HCV Routine 09/02/2019 11:36 AM FLOWER STRIPPER Need for hepatitis C screening test from Last 3 Months or Most Recently Relevant to Health Maintenance Results * LDL CHOLESTEROL,DIRECT (10/15/2024 9:27 AM FLOWER STRIPPER) DIRECT LDL 50 <100 mg/dL [facility] Comment: Desirable range <100 mg/dL for primary prevention; <70 mg/dL for patients with CHD or diabetic patients with > or = 2 CHD risk factors. Blood BLOOD SPECIMEN / Unknown 10/15/2024 9:27 AM FLOWER STRIPPER 10/15/2024 9:28 AM FLOWER STRIPPER Gayle Davidson DO CHEMISTRY Final Resu lt [facility] [place] [address] [place] [address], [place] [address] [place] [address] * BASIC METABOLIC PANEL (10/15/2024 9:27 AM FLOWER STRIPPER) Pathologist [facility] GLUCOSE 78 65 - 99 [...] BLOOD SPECIMEN / Unknown 10/15/2024 9:27 AM FLOWER STRIPPER 10/15/2024 9:28 AM FLOWER STRIPPER Gayle Davidson DO CHEMISTRY Final Resu lt [facility] [address] [place] [address], [facility] [address] [place] [address] * XR MAMMO KIRSTEN BILAT SCREEN (09/30/2024 1:46 PM FLOWER STRIPPER) Anatomical Region Laterality Modality BREASTS, Breast Left, Breast Right Bilateral Mammography Impressions 09/30/2024 3:16 PM FLOWER STRIPPER There is no radiographic evidence for malignancy. Recommend annual mammograms. MAMMOGRAM ASSESSMENT: ACR 1 Negative PATIENTS: You will also receive a letter with your examination results in an easy to read format. If you have questions about your results, please contact your referring provider. Narrative 09/30/2024 3:16 PM FLOWER STRIPPER For Patients: As a result of the Cures Act, medical imaging exams and procedure reports are released immediately into your electronic medical record. You may view this report before your referring provider. If you have questions, please contact your health care provider. XR MAMMO KIRSTEN BILAT SCREEN [[id number]] CLINICAL HISTORY: This is an asymptomatic 79 y.o. patient. INDICATION FOR EXAM: Mammogram Screening. TECHNIQUE: CC & MLO views were obtained. This study was evaluated with the assistance of Computer-Aided Detection. Breast Tomosynthesis was used in interpretation. COMPARISON FILM: Yes 08/28/23 [facility] 08/22/22 [facility] FINDINGS: The breasts are almost entirely fatty. There are no dominant masses, suspicious micro calcifications or areas of architectural distortion. us Gayle Davidson DO MAMMO Final Resu lt * EKG 12 LEAD (08/27/2024 3:36 PM FLOWER STRIPPER) us Gayle Davidson DO EKG ORD Final Resu lt * TN READING EKG - NO CHARGE, COMP ONLY (08/27/2024 3:36 PM FLOWER STRIPPER) us Gayle Davidson DO PB - PROVIDER READINGS Fin al Result * TN SPIROMETRY W VITAL CAPACITY (08/17/2024 12:00 AM FLOWER STRIPPER) Agapito Stovall MD PB - RESPIRATORY SYSTEM SE RVICES Final Result * SCAN-EVENT MONITOR (08/17/2024 12:00 AM FLOWER STRIPPER) Scanner OTHER Final Result * (ABNORMAL) XR DXA BONE DENSITY 1 SITE AXIAL AND 1 SITE PERIPHERAL (09/11/2021 9:36 AM FLOWER STRIPPER) Anatomical Region Laterality Modality LUMBAR SPINE Other Impressions 09/22/2021 8:13 AM FLOWER STRIPPER Osteopenia. RECOMMENDATIONS: The National Osteoporosis Foundation recommends [...] recommended in 3-5 years. Greer Victor PA-C [facility] 09/22/2021 Narrative 09/22/2021 8:13 AM FLOWER STRIPPER For Patients: Results are automatically released to your [employer] account once available, in compliance with federal regulations. This means that you may see your results before your provider has had a chance to review them. Please allow 2-3 business days for your provider to comment on the results. XR DXA Bone Mineral Density (BMD) EXAM LOCATION: [address] [address] PATIENT NAME: Tu Forde DATE OF : [...] two scanners are made by the same envelope fold operator. PROCEDURE: Dual-energy x-ray absorptiometry performed with [...] lt * ANTI HCV (09/02/2019 11:36 AM FLOWER STRIPPER) HEPATITIS C ANTIBODY Non-React long Non-React long 09/03/2019 6:28 AM FLOWER STRIPPER [facility] Comment:Antibodies to HCV no t detected; does not exclude the possibility of exposure to HCV. Blood BLOOD SPECIMEN / Unknown Venipuncture / Unknown 09/02/2019 11:36 AM FLOWER STRIPPER 09/02/2019 11:41 AM FLOWER STRIPPER Gayle Davidson DO SEND OUTS Final Resu lt [facility] [address] [place] [address], from Last 3 Months or Most Recently Relevant to Health Maintenance Insurance MEDICARE PART B HB ONLY MEDICARE PART A HB ONLY BLUE CROSS KAW BLUE MR PB ONLY BLUE CROSS KAW BLUE HB ONLY Advance Directives Documents on File Type Date Recorded Patient Vendor Management Associate Expl anation Healthcare Directive 03/07/2016 3:39 PM [facility], 03/07/2016 * Full Code (Latest Code Status on File) Date Activated Date Inactivated Comments 10/11/2020 11:39 AM 10/11/2020 7:08 PM Question Answer Comments Code Status Discussion: Discussed * Full Code Date Activated Date Inactivated Comments 06/13/2016 11:28 AM 06/14/2016 4:48 PM * Full Code Date Activated Date Inactivated Comments 06/13/2016 3:46 AM 06/13/2016 11:28 AM Care Teams Consumer Education Specialist Relationship Specialty Start Date End Date Gayle Davidson DO [address] [place] [address] PCP - General Family Practice 10/10/15 Agapito Stovall MD Allergy and Immunology 01/06/14 Anish Weeks MD [address] [facility] [address] [place] [address] Radiology - Diagnostic 10/13/15
--- NOTE | 2024-10-31 16:43 | CRLHL7_ITS ---
For Patients: As a result of the Century Cures Act, medical imaging exams and procedure reports are released immediately into your electronic medical record. You may view this report before your referring provider. If you have questions, please contact your health care provider. Indication: Post splint placement. Technique: One view of the left wrist Comparison: Same day left wrist radiograph Findings/Impression: The overlying cast limits osseous and soft tissue details. Redemonstration of acute fractures of the distal left radius and ulna that are grossly unchanged in alignment on this single PA view. Osteoarthritic degenerative changes of the 1st CMC joint. Mild osteopenia. Dictated by Anjel Tena MD @ 10/31/2024 5:49:42 PM (Electronically Signed)
[2024-10-31] MEDS: ACETAMINOPHEN 500 MG TABLET 1000 MG PO (17:05)
== END 2024-10-31 17:36 | disposition home or self-care (01) ==
PROVIDERS: Emergency Provider Internal Medicine; PCP Family Medicine
DX: S52.502A Unspecified fracture of the lower end of left radius, initial encounter for closed fracture (principal); W01.0XXA Fall on same level from slipping, tripping and stumbling without subsequent striking against object, initial encounter; Y93.01 Activity, walking, marching and hiking
CPT/HCPCS: 73100; 99283; A9270

== ENCOUNTER 2024-12-08 10:30 | Outpatient (RCR) | payer MEDICARE, BC, SELFPAY | END 2025-04-07 23:59 | disposition home or self-care (01) | PROVIDERS: PCP Family Medicine; Visit Provider Family Medicine | DX: R15.2 Fecal urgency (principal); N39.41 Urge incontinence; R15.1 Fecal smearing; Z51.89 Encounter for other specified aftercare | CPT/HCPCS: 97110; 97112; 97161; 97535 ==

== ENCOUNTER 2025-02-19 16:30 | Outpatient (RCR) | payer MEDICARE, BC, SELFPAY ==
--- NOTE | 2025-01-08 16:22 | OT.OPOE ---
OT Outpatient Ortho Eval OT Outpatient Ortho Eval* Start: 01/07/25 18:00 Freq: Status: Active Protocol: Document 01/08/25 09:19 AMB (Rec: 01/08/25 16:19 AMB [id number]) E-signed By Maddie Cisse, OTR/L, CLT, STRIP CATCHER OT OP Ortho Eval Details Complexity Complexity Low Insurance Information Insurance Information Medicare B Outpatient History/Precautions Current Condition/Medical Diagnosis Referring Provider Jon Armenta PA-C Medical Diagnoses S52.692A Other fracture of lower end of left ulna S52.572A Other intraarticular fracture of lower end of left radius Treatment Diagnosis R53.1 Weakness LUE M25.632 Stiffness LUE wrist Date of Onset 10/31/24 Other Conditions PMH (copied from ortho chart): Active Problems (Updated 12/15 @ 16:10 by Jon Armenta PA-C) Fracture of distal end of left ulna (Acute) 6.5 weeks post closed treatment of a closed, acute left distal ulna metaphyseal fracture in addition to ulnar styloid fracture, with mild displacement (date of injury ) S52.602A - Unspecified fracture of lower end of left ulna, initial encounter for closed fracture (ICD-10) Closed fracture of left distal radius (Acute) 6.5 weeks post closed treatment of a closed, acute left distal radius metaphyseal fracture with intra-articular split (date of injury 2024) S52.502A - Unspecified fracture of the lower end of left radius, initial encounter for closed fracture (ICD-10) Osteoarthritis of carpometacarpal (CMC) joint of left thumb (Acute) Severe, [id number] with sclerosis and cystic changes M18.12 - Unilateral primary osteoarthritis of first carpometacarpal joint, left hand (ICD-10) Medical History (Updated 12/15 @ 16:10 by Jon Armenta PA-C) Osteoarthritis of hip, unspecified M16.9 - Osteoarthritis of hip, unspecified (ICD-10) Postmenopausal atrophic vaginitis N95.2 - Postmenopausal atrophic vaginitis (ICD-10) Allergic rhinitis, unspecified J30.9 - Allergic rhinitis, unspecified (ICD-10) Chronic GERD K21.9 - Gastro-esophageal reflux disease without esophagitis (ICD-10) Asthma J45.909 - Unspecified asthma, uncomplicated (ICD-10) Surgical History (Updated @ 08:31 by Katya Tinsley ~ [facility], [facility]) History of cataract extraction (10/2022) Z98.49 - Cataract extraction status, unspecified eye (ICD- 10) History of heart artery stent (06/14/16) Z95.5 - Presence of coronary angioplasty implant and graft (ICD-10) 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 Pt does have hx of significant OA in the CMC joint which could be painful at times. 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 Pt was casted until and then placed in a splint which she is supposed to wear at all times unless she is totally at rest or in the shower. She was also told to do no lifting and no weight bearing on her LUE. Pt states she has been compliant. Pt states she does not really have much pain most of the time but she will notice if she moves her wrist fast or too far, it will hurt. Goniometric Comments Goniometric Comments Goniometric Comments 01/08/25 Pt demonstrates AROM WFL throughout BUE with the exception of the LUE forearm and wrist which are as follows : Forearm: Pro/Sup: 60/60 Wrist: Flex/Ext: 55/40 UD/RD: 15/20 Full composite fist Opposition to base of SF. Hand Pinch/County Treasurer Strength Hand Pinch/County [employer]r Strength Hand Pinch/County [employer]r Strength Left Hand,Right Hand Left Hand [employer]r Strength Position 1 in Elbow 20 Flexion (lbs) Lateral Pinch Strength (lbs) 5 Three Point Pinch (lbs) 2 Right Hand [employer]r Strength Position 1 in Elbow 54 Flexion (lbs) Lateral Pinch Strength (lbs) 16 Three Point Pinch (lbs) 11 OT Objective Data Hand Hand Dominance Right Skin/Wounds/Edema Comments 01/08/25 Mild swelling is appreciated at the dorsal and volar wrist as well as dorsal hand, no bruising, no skin discoloration. Sensation Sensation Assessment Summary Comments 01/08/25 Pt denies any paresthesia. OT Problems Problems Problems Decreased Strength,Decreased Range of Motion,Pain,Lifting, Gripping,Pinching Problems Comments Pt unable to participate in Yoga, sewing, and her normal exs. Other Problems Opening Containers,Computer Patient Potential Good Assessment Assessment Assessment Pt is a very pleasant 79yo referred to OT to address pain , weakness, and limited AROM in the LUE following LUE DR and DU fractures. Due to these deficits, pt is not able to participate in Yoga, swimming, strengthening, sewing, etc. Pt will benefit from skilled OT intervention to address impairments in order to restore full, pain- free use of her LUE. Occupational Therapy Treatment Plan - OP Potential Rehabilitation Potential Good Set Goals Goals Set with Patient Yes Goals Goals 1. Pt will be independent and compliant with HEP in order to resume full, pain-free use of the involved UE. 3 weeks 2. Pt will demonstrate full, pain-free AROM of the involved UE in order to improve ability to grasp and hold. 6 weeks 3. Pt will demonstrate pain- free media strategist and pinch strength comparable to the uninvolved side in order to im-prove functional grasp, hold, reach, and lifting ability needed to complete self-care, leisure tasks, and work activities. 8 weeks. 4. Pt will be able to resume quilting, gardening and Yoga without complaints of pain/ weakness/stiffness in her LUE. 10 weeks. Treatment Plan Treatment Plan Evaluation,Edema Control,Joint Mobilization,Manual Therapy, Splinting,Therapeutic Exercise ,Therapeutic Activities,Self Care/Home Management,Education Expected Frequency 1-2x Week Expected Duration 8-10 Weeks Home Program Home Program Home Program Initiated Home Program Specifics Pt was provided training and practice in HEP for non- resisted muscle pumps for edema reduction in the LUE as well as AROM for wrist flexion , ext, UD, RD, pronation and supination to improve functional use of her LUE. Following demo, pt is able to complete 10 reps of each ex with minimal cues. Pt was provided with written instructions for use at home as well. Certification Certification Statement I Certify That: Therapy Services Provided, Therapy Plan Established, Therapy Plan Reviewed Certification Information Clinic ID # [id number] Initial Certification Date 01/08/25 Recertification Due Date 04/08/25 Provider Signature Required Yes Provider Signature Shows Agreement With POC & Medical Necessity Physician NPI Number Write NPI# Here Physician Comment/Change Comment or Changes Physician Signature & Date Requested Please Sign/Date Here
== END 2025-02-22 10:38 | disposition home or self-care (01) ==
PROVIDERS: PCP Family Medicine; Visit Provider Physician Assistant Surgical
DX: S52.692D Other fracture of lower end of left ulna, subsequent encounter for closed fracture with routine healing (principal); S52.572D Other intraarticular fracture of lower end of left radius, subsequent encounter for closed fracture with routine healing; Z51.89 Encounter for other specified aftercare
CPT/HCPCS: 97110; 97140; 97165; 97535; X5282